=== PATIENT | female | born 1945 | race Two or more races ===

== ENCOUNTER → 2016-10-25 | Outpatient (CLI) | payer OTHER ==
[~2016-10-25] MED LIST: AMLO-511 PO; ASPI81TA2 PO; ATEN25 PO; LOSA25TA21 PO; METF850T2 PO; OS500 PO; PRAV40 PO; VITAD400 PO
== END | disposition home or self-care (01) ==
LOC: RADPV 13:06
PROVIDERS: ATTEND Internal Medicine Nephrology
DX: N18.9 Chronic kidney disease, unspecified (principal); N27.1 Small kidney, bilateral
CPT/HCPCS: 76770